=== PATIENT | female | born 1955 | race Caucasian/White ===

== ENCOUNTER → 2024-10-11 | Outpatient (CLI) | payer MEDICARE, SELFPAY ==
[2024-10-11 12:52] LABS: Collection Type, Urine Clean Catch
[2024-10-11 13:15] LABS: Basophils % (Auto) 1 % (0-2.5); Eosinophils # (Auto) 0.1 Thou/mm3 (0.0-0.5); Eosinophils % (Auto) 3 % (0-10); Hematocrit 38.3 % (36.0-46.0); Hemoglobin 13.2 g/dL (12.0-16.0); Immature Granulocytes % (Auto) 0 % (0-0); Immature Granulocytes Auto 0.01 Thou/mm3 (0.00-0.00); Lymphocytes % (Auto) 37 % (10-50); Mean Corpuscular HGB Conc 34.5 g/dl (31.0-37.0); Mean Corpuscular Hemoglobin 28.9 pg (25.0-35.0); Mean Corpuscular Volume 84 fL (80-100); Monocytes # (Auto) 0.5 Thou/mm3 (0.0-0.8); Monocytes % (Auto) 9 % (0-12); Neutrophils # (Auto) 2.9 Thou/mm3 (1.8-7.7); Neutrophils % (Auto) 51 % (37-80); Nucleated Red Blood Cell % 0 /100 WBC (0); Platelet Count 264 Thou/mm3 (140-440); RDW Standard Deviation 40.1 fL (36.4-46.3); Red Blood Count 4.57 Miln/mm3 (4.00-5.20); White Blood Count 5.6 Thou/mm3 (3.6-11.0)
[2024-10-11 13:17] LABS: Bilirubin,Urine Negative (Negative); Blood,Urine Negative (Negative); Clarity,Urine Clear (Clear/Hazy); Color,Urine Lt-Yellow (Lt Yel-Yel); Culture Indicated,Urine Not Indicated; Glucose, Urine Negative (Negative); Hyaline Casts,Urine < 1 /hpf (0-1); Ketones,Urine Negative (Negative); Leukocyte Esterase,Urine Negative (Negative); Nitrite,Urine Negative (Negative); PH,Urine 5.5 (5.0-7.0); Protein,Urine Negative (Neg - Trace); RBC,Urine 4 /hpf (0-3); Specific Gravity,Urine 1.021 (1.001-1.035); Squamous Epithelial Cell,Urine 1 /hpf (0-5); Urobilinogen,Urine Negative mg/dL (0.0-1.0); WBC,Urine 4 /hpf (0-5)
[2024-10-11 13:27] LABS: Glucose Estimated Average 117 mg/dL (80-131); Hemoglobin A1C 5.7 % Hgb (4.8-6.0)
[2024-10-11 13:31] LABS: Parathyroid Hormone Intact 129.7 pg/ml (18.5-88.0)
[2024-10-11 13:34] LABS: Alanine Aminotransferase 20 U/L (10-49); Albumin, Serum 4.6 gm/dL (3.4-4.8); Albumin/Globulin Ratio 1.9 (1.2-2.2); Alkaline Phosphatase 109 U/L (46-116); Anion Gap 7 (7-16); Aspartate Amino Transferase 19 U/L (0-34); BUN/Creatinine Ratio 24 Ratio (12-20); Bilirubin,Total 1.1 mg/dL (0.3-1.2); Blood Urea Nitrogen 26 mg/dL (9-23); Calcium 10.6 mg/dL (8.3-10.6); Calcium (Corrected) 10.6 mg/dL (8.5-10.1); Carbon Dioxide 29.2 mMol/L (20.0-31.0); Cardiac Risk Estimate 3.3 RATIO (3.7-5.6); Chloride 100 mMol/L (98-107); Cholesterol 159 mg/dL (132-200); Creatinine (Component) 1.1 mg/dL (0.6-1.3); Globulin 2.4 gm/dL (2.3-3.5); Glucose 146 mg/dL (74-106); HDL Cholesterol 48 mg/dL (40-60); LDL Cholesterol,Calculated 83 mg/dL (0-130); Osmolality,Calculated 279 (275-295); Potassium 3.9 mMol/L (3.4-5.1); Sodium 136 mMol/L (136-145); Thyroid Stimulating Hormone 1.06 uIU/mL (0.55-4.78); Triglycerides 139 mg/dL (30-150); eGFR 55 See Note
[2024-10-11 13:35] LABS: Vitamin B12 428 pg/mL (211-911)
== END | disposition home or self-care (01) ==
LOC: COPL 11:59
PROVIDERS: PCP Physician Assistant; Referring Provider Physician Assistant; Visit Provider Physician Assistant
DX: I10 Essential (primary) hypertension (principal); E03.9 Hypothyroidism, unspecified; E78.5 Hyperlipidemia, unspecified; R73.01 Impaired fasting glucose; E21.3 Hyperparathyroidism, unspecified
CPT/HCPCS: 36415; 80053; 80061; 81001; 82306; 82607; 83036; 83970; 84443; 85025

== ENCOUNTER → 2024-10-13 | Outpatient (CLI) | payer MEDICARE, SELFPAY ==
[2024-10-19 06:42] LABS: Fecal Globin Result DETECTED (NOT DETECTED)
== END | disposition home or self-care (01) ==
LOC: SLDO 15:19
PROVIDERS: PCP Physician Assistant; Referring Provider Physician Assistant; Visit Provider Physician Assistant
DX: I10 Essential (primary) hypertension (principal); E03.9 Hypothyroidism, unspecified; E78.5 Hyperlipidemia, unspecified; R73.01 Impaired fasting glucose
CPT/HCPCS: 82274; G0328

== ENCOUNTER → 2025-01-11 | Outpatient (CLI) | payer MEDICARE, SELFPAY ==
[2025-01-11 12:09] LABS: Collection Type, Urine Clean Catch
[2025-01-11 12:29] LABS: Bilirubin,Urine Negative (Negative); Blood,Urine Negative (Negative); Clarity,Urine Clear (Clear/Hazy); Color,Urine Lt-Yellow (Lt Yel-Yel); Culture Indicated,Urine Not Indicated; Glucose, Urine Negative (Negative); Hyaline Casts,Urine < 1 /hpf (0-1); Ketones,Urine Negative (Negative); Leukocyte Esterase,Urine Negative (Negative); Nitrite,Urine Negative (Negative); Protein,Urine Negative (Neg - Trace); RBC,Urine 1 /hpf (0-3); Squamous Epithelial Cell,Urine 1 /hpf (0-5); WBC,Urine 1 /hpf (0-5)
[2025-01-11 12:32] LABS: Glucose Estimated Average 120 mg/dL (80-131); Hemoglobin A1C 5.8 % Hgb (4.8-6.0)
[2025-01-11 12:36] LABS: Alanine Aminotransferase 20 U/L (10-49); Albumin, Serum 4.3 gm/dL (3.4-4.8); Albumin/Globulin Ratio 1.8 (1.2-2.2); Alkaline Phosphatase 107 U/L (46-116); Anion Gap 7 (7-16); Aspartate Amino Transferase 20 U/L (0-34); BUN/Creatinine Ratio 20 Ratio (12-20); Bilirubin,Total 0.8 mg/dL (0.3-1.2); Blood Urea Nitrogen 18 mg/dL (9-23); Calcium 10.4 mg/dL (8.3-10.6); Calcium (Corrected) 10.4 mg/dL (8.5-10.1); Carbon Dioxide 30.9 mMol/L (20.0-31.0); Chloride 103 mMol/L (98-107); Cholesterol 168 mg/dL (132-200); Creatinine (Component) 0.9 mg/dL (0.6-1.3); Globulin 2.4 gm/dL (2.3-3.5); Glucose 128 mg/dL (74-106); HDL Cholesterol 56 mg/dL (40-60); LDL Cholesterol,Calculated 83 mg/dL (0-130); Osmolality,Calculated 285 (275-295); Sodium 141 mMol/L (136-145); Total Protein 6.7 gm/dL (5.7-8.2); Triglycerides 145 mg/dL (30-150); eGFR > 60 See Note
== END | disposition home or self-care (01) ==
LOC: COPL 11:20
PROVIDERS: PCP Physician Assistant; Referring Provider Physician Assistant; Visit Provider Physician Assistant
DX: I12.9 Hypertensive chronic kidney disease with stage 1 through stage 4 chronic kidney disease, or unspecified chronic kidney disease (principal); N18.30 Chronic kidney disease, stage 3 unspecified; E78.5 Hyperlipidemia, unspecified; E03.9 Hypothyroidism, unspecified; R73.01 Impaired fasting glucose; R31.9 Hematuria, unspecified
CPT/HCPCS: 36415; 80053; 80061; 81001; 83036; 84443

== ENCOUNTER 2025-05-18 16:09 | Emergency (ER) | payer MEDICARE, SELFPAY ==
[2025-05-18 16:11] VITALS: BMI 33.7
[2025-05-18 17:10] VITALS: BP 118/76; PULSE 58; RESP 18; TEMP 36.7; O2SAT 96; BMI 33.7
--- NOTE | 2025-05-18 17:16 | XR_ITS ---
EXAMINATION: Ankle, right 3 views . Technique: Ankle AP, oblique, lateral 3 views Date and time of exam: May 18, 2025 1751 hours INDICATIONS: Patient fell 2 days ago with injury of the ankle, ankle pain. Status post ankle surgery April 18, 2025 FINDINGS: Status post operative reduction internal fixation fractures distal fibular shaft and distal tibia including medial malleolus Fracture lines are still partially evident fibular shaft and medial malleolus No acute fracture No ankle dislocation IMPRESSION: No acute fracture, no ankle dislocation
--- NOTE | 2025-05-18 17:16 | XR_ITS ---
Examination: Foot, right, 3 views Technique: AP, oblique, lateral views foot, 3 views Date and time of exam: May 18, 2025 1715 hours INDICATIONS: Twisting injury to the foot 2 days ago, foot pain. FINDINGS: No acute foot fracture, please see the ankle report No foreign body IMPRESSION: No acute foot fracture
--- NOTE | 2025-05-18 17:17 | PD.EDRME ---
Rapid Medical Screening Exam RME Arrival date/time: 05/18/25 16:09 69-year-old female presents to the emergency department stating that on April 18 she had surgery for a trimalleolar fracture. Patient reports that she has been wearing her boot but stepped wrong yesterday and wants to make sure that all the hardware is in place Chief Complaint: Recheck/Abnormal Lab/Rx Vital signs: Vital Signs Temperature 98.0 F 05/18/25 17:10 Pulse Rate 58 L 05/18/25 17:10 Respiratory Rate 18 05/18/25 17:10 Blood Pressure 118/76 05/18/25 17:10 Pulse Oximetry (%) 96 05/18/25 17:10 Oxygen Delivery Method Room Air 05/18/25 17:10
--- NOTE | 2025-05-18 17:51 | PD.EDRECHK ---
ED Recheck Abnl Lab Rx-RME/HPI General Chief Complaint: Recheck/Abnormal Lab/Rx Stated Complaint: R FOOT INJURY S/P SURGERY 04/18/25 Time Seen by Provider: 05/18/25 17:50 Arrival date/time: 05/18/25 16:09 69-year-old female presents to the emergency department stating that on April 18 she had surgery for a trimalleolar fracture. Patient reports that she has been wearing her boot but stepped wrong yesterday and wants to make sure that all the hardware is in place Limitations: no limitations RME / HPI RME / HPI narrative: 05/18/25 16:09 69-year-old female presents to the emergency department stating that on April 18 she had surgery for a trimalleolar fracture. Patient reports that she has been wearing her boot but stepped wrong yesterday and wants to make sure that all the hardware is in place Related Data Home Medications ?Medication ?Instructions ?Recorded ?Confirmed atorvastatin 10 mg tablet 1 tab PO QDAY 12/30/19 12/30/19 gabapentin 400 mg capsule 1 cap PO TID 12/30/19 12/30/19 levothyroxine 75 mcg tablet 1 tab PO QDAY 12/30/19 12/30/19 omeprazole 20 mg capsule,delayed 1 cap PO QDAY 12/30/19 12/30/19 release paroxetine HCl 10 mg tablet 1 tab PO QDAY 12/30/19 12/30/19 spironolactone 25 mg tablet 1 tab PO QDAY 12/30/19 12/30/19 Previous Rx's ?Medication ?Instructions ?Recorded lisinopril 10 mg tablet 10 mg PO QDAY #30 tabs 12/30/19 Allergies Allergy/AdvReac Type Severity Reaction Status Date / Time No Known Allergies Allergy Verified 12/30/19 13:24 Review of Systems Review of Systems Systems Reviewed: All systems reviewed, normal except as documented Constitutional Constitutional: Reports system reviewed and no additional complaints, except as documented, Denies fever(s) and Denies headache(s) Eyes Eyes: Reports system reviewed and no additional complaints, except as documented and Denies blurry vision ENT Ears, Nose, Mouth, and Throat: Reports system reviewed and no additional complaints, except as documented, Denies headache(s), Denies nasal congestion and Denies nasal discharge Cardiovascular Cardiovascular: Reports system reviewed and no additional complaints, except as documented, Denies chest pain and Denies dyspnea Respiratory Respiratory: Reports system reviewed and no additional complaints, except as documented, Denies chest congestion, Denies cough and Denies dyspnea Gastrointestinal Gastrointestinal: Reports system reviewed and no additional complaints, except as documented and Denies abdominal pain Musculoskeletal Musculoskeletal: Reports system reviewed and no additional complaints, except as documented, Reports abnormal gait, Reports arthralgias (Right ankle) and Denies deformity Integumentary/Breasts Skin/Breast: Reports system reviewed and no additional complaints, except as documented and Denies rash Neurologic Neurologic: Reports system reviewed and no additional complaints, except as documented, Reports as per HPI, Reports abnormal gait and Denies headache(s) Past Medical History Past Medical History NEUROLOGIC: Negative Neurological Disorders CARDIAC: Negative Cardiac Disorders ED Exam General Limitations: Present no limitations General appearance: Present alert and in no apparent distress Head Head exam: Present atraumatic Eye Eye exam: Present normal appearance, PERRL and EOMI ENT ENT exam: Present normal exam, normal oropharynx and mucous membranes moist Neck Neck exam: Present normal inspection, full ROM and trachea midline Chest Chest inspection: Present normal inspection and symmetric chest wall rise Respiratory Respiratory exam: Present normal lung sounds bilaterally Cardiovascular Cardiovascular exam: Present regular rate, normal rhythm and normal heart sounds Abdominal Exam Abdominal exam: Present soft and normal bowel sounds Extremities Exam Extremities exam: Present tenderness, normal capillary refill and joint swelling (Mild no deformity right ankle) Back Exam Back exam: Present normal inspection and full ROM Neurological Exam Neurological exam: Present alert, oriented X3 and CN II-XII intact Psychiatric Psychiatric exam: Present normal affect and normal mood Skin Skin exam: Present warm, dry, intact and normal color Course Quality Measures none Orders Category Date Time Status XR ankle comp RT min 3V Stat Exams 05/18/25 17:16 Completed XR foot comp RT min 3V Stat Exams 05/18/25 17:16 Completed Vital Signs Vital signs: Vital Signs Temperature 98.0 F 05/18/25 17:10 Pulse Rate 58 L 05/18/25 17:10 Respiratory Rate 18 05/18/25 17:10 Blood Pressure 118/76 05/18/25 17:10 Pulse Oximetry (%) 96 05/18/25 17:10 Oxygen Delivery Method Room Air 05/18/25 17:10 O2 saturation 96 % r.a wnl Recheck / Abnormal Lab / Rx MDM Narrative MDM Narrative:: 69-year-old female presents to the emergency department stating that on April 18 she had surgery for a trimalleolar fracture. Patient reports that she has been wearing her boot but stepped wrong yesterday and wants to make sure that all the hardware is in place On exam patient well-appearing patient does not appear toxic in no acute distress patient has no significant pain patient smiling Imaging of the right ankle and right foot obtained no acute fracture dislocation noted. Fracture appears to be healing hardware appears to be in place Patient given a copy of her disc and instructed follow-up with orthopedist For emergent concerns patient is instructed return immediately Patient data External records reviewed:: None Clinical information provided by:: patient Social determinants that could affect healthcare access:: none Patient has the following chronic illnesses:: She history How is presenting disease/condition affected by chronic disease/condition?: caused by Evaluation data The following diagnostics were reviewed and interpreted by me:: radiology exam(s) Lab and/or radiology exams considered but not ordered:: Radiology obtain Interpretation Summary: Reviewed by me Medications / Prescriptions Medications or Prescriptions considered but not ordered:: Given no meds Medication administrations:: No meds Consultations Consultation(s) initiated? (list below): No Diagnosis Recheck Differential Diagnosis: other Most likely diagnosis given after review of the tests above:: Ankle sprain Admission Indicated Admission indicated?: not indicated Admission Request Was there a request for admission?: No Disposition Plan Disposition Plan: Discharge Discharge Attestation Discharge Attestation: The patient and all family members were given an opportunity to ask questions and understood the discharge instructions. Discharge instructions specifically effects, indications for sooner follow up or return to the emergency department, and the expected course of current diagnosis. Patient condition: Stable Discharge Plan Plan Patient Disposition: HOME (Self Care) Discharge Disposition comment: Stable Prescriptions/Referrals Prescriptions/Med Rec: No Action paroxetine HCl 10 mg tablet 1 tab PO QDAY Patient Comments: TK 1 T PO QD atorvastatin 10 mg tablet 1 tab PO QDAY Patient Comments: TK 1 T PO QD gabapentin 400 mg capsule 1 cap PO TID Patient Comments: TK 1 C PO TID spironolactone 25 mg tablet 1 tab PO QDAY Patient Comments: TK 1 T PO QD PRN levothyroxine 75 mcg tablet 1 tab PO QDAY Patient Comments: TK 1 T PO QD omeprazole 20 mg capsule,delayed release(/EC) 1 cap PO QDAY Patient Comments: TK 1 C PO QD PRN lisinopril 10 mg tablet 10 mg PO QDAY Qty: 30 0RF Problem List Clinical Impression: Ankle pain, right Patient/Caregiver Discharge Instructions Education Materials: ED RICE Additional Instructions: Please follow up with your specialist as discussed for worsening symptoms return immediately Print Language: Romansh Stand Alone Forms: Mya Award Info., Patient Portal Info Letter PA/SCHOOL PSYCHOLOGICAL EXAMINER Supervising Physician PA/SCHOOL PSYCHOLOGICAL EXAMINER Supervising Physician: Dr goins
== END 2025-05-18 18:25 | disposition home or self-care (01) ==
LOC: SERX 18:30
PROVIDERS: Emergency Provider Emergency Medicine
DX: M25.571 Pain in right ankle and joints of right foot (principal); M79.671 Pain in right foot; Z98.890 Other specified postprocedural states
CPT/HCPCS: 73610; 73630; 99283

== ENCOUNTER → 2025-05-30 | Outpatient (CLI) | payer MEDICARE, SELFPAY ==
--- NOTE | 2025-05-30 15:59 | XR_ITS ---
EXAMINATION: Ankle, right 3 views . Technique: Ankle AP, oblique, lateral 3 views Date and time of exam: May 30, 2025, 1616 hours Comparison May 18, 2025 MEDICATIONS: History ankle fractures, post 2 ankle surgeries February and March 2025 FINDINGS: Status post operative reduction internal fixation fractures distal fibular shaft and medial malleolus Partial healing of the fracture distal fibular shaft with satisfactory alignment Medial malleolar fracture line is still quite evident Orthopedic hardware satisfactory position IMPRESSION: Recommend continued follow-up to exclude nonunion at the medial malleolar fracture site
== END | disposition home or self-care (01) ==
PROVIDERS: PCP Physician Assistant; Referring Provider Physician Assistant Medical; Visit Provider Physician Assistant Medical
DX: S82.851A Displaced trimalleolar fracture of right lower leg, initial encounter for closed fracture (principal); X58.XXXA Exposure to other specified factors, initial encounter
CPT/HCPCS: 73610

== ENCOUNTER → 2025-07-20 | Outpatient (CLI) | payer MEDICARE, SELFPAY ==
[2025-07-20 15:05] LABS: Glucose Estimated Average 126 mg/dL (80-131); Hemoglobin A1C 6.0 % Hgb (4.8-6.0)
[2025-07-20 15:30] LABS: Alanine Aminotransferase 36 U/L (10-49); Albumin, Serum 4.6 gm/dL (3.4-4.8); Albumin/Globulin Ratio 1.6 (1.2-2.2); Alkaline Phosphatase 133 U/L (46-116); Anion Gap 13 (7-16); Aspartate Amino Transferase 28 U/L (0-34); BUN/Creatinine Ratio 14 Ratio (12-20); Bilirubin,Total 1.0 mg/dL (0.3-1.2); Blood Urea Nitrogen 15 mg/dL (9-23); Calcium 10.7 mg/dL (8.3-10.6); Calcium (Corrected) 10.7 mg/dL (8.5-10.1); Carbon Dioxide 27.5 mMol/L (20.0-31.0); Chloride 100 mMol/L (98-107); Creatinine (Component) 1.1 mg/dL (0.6-1.3); Globulin 2.8 gm/dL (2.3-3.5); Glucose 152 mg/dL (74-106); Osmolality,Calculated 283 (275-295); Potassium 3.4 mMol/L (3.4-5.1); Sodium 140 mMol/L (136-145); Thyroid Stimulating Hormone 4.48 uIU/mL (0.55-4.78); Total Protein 7.4 gm/dL (5.7-8.2); eGFR 54 See Note
[2025-07-20 15:44] LABS: Cardiac Risk Estimate 3.3 RATIO (3.7-5.6); Cholesterol 164 mg/dL (132-200); HDL Cholesterol 50 mg/dL (40-60); LDL Cholesterol,Calculated 75 mg/dL (0-130); Triglycerides 197 mg/dL (30-150)
== END | disposition home or self-care (01) ==
PROVIDERS: PCP Physician Assistant; Referring Provider Physician Assistant; Visit Provider Physician Assistant
DX: E03.9 Hypothyroidism, unspecified (principal); E78.5 Hyperlipidemia, unspecified; I10 Essential (primary) hypertension; R73.01 Impaired fasting glucose; R19.5 Other fecal abnormalities
CPT/HCPCS: 36415; 80053; 80061; 83036; 84443

== ENCOUNTER → 2025-07-23 | Outpatient (CLI) | payer MEDICARE, SELFPAY ==
[2025-07-26 06:35] LABS: Fecal Globin Result NOT DETECTED (NOT DETECTED)
== END | disposition home or self-care (01) ==
LOC: SLDO 14:15
PROVIDERS: Referring Provider Physician Assistant; Visit Provider Physician Assistant
DX: R19.5 Other fecal abnormalities (principal); E03.9 Hypothyroidism, unspecified; I10 Essential (primary) hypertension; E78.5 Hyperlipidemia, unspecified; R73.01 Impaired fasting glucose
CPT/HCPCS: 82274; G0328

== ENCOUNTER → 2025-08-03 | Outpatient (CLI) | payer MEDICARE, SELFPAY ==
--- NOTE | 2025-08-03 | XR_ITS ---
EXAMINATION: Ankle, right 3 views . Technique: Ankle AP, oblique, lateral 3 views Date and time of exam: August 03, 2025 1237 hours, comparison May 30, 2025 INDICATIONS: History ankle fracture is postop reduction internal fixation FebruaryMarch 2025 FINDINGS: Healed fractures distal fibular shaft with satisfactory alignment Significant healing fracture medial malleolus with satisfactory alignment Orthopedic hardware satisfactory position IMPRESSION: Significant healing bimalleolar fractures with satisfactory alignment
== END | disposition home or self-care (01) ==
PROVIDERS: PCP Family Medicine; Referring Provider Physician Assistant Medical; Visit Provider Physician Assistant Medical
DX: S82.851D Displaced trimalleolar fracture of right lower leg, subsequent encounter for closed fracture with routine healing (principal); X58.XXXD Exposure to other specified factors, subsequent encounter
CPT/HCPCS: 73610

== ENCOUNTER 2025-08-28 12:08 | Emergency (ER) | payer MEDICARE, SELFPAY ==
--- NOTE | 2025-08-28 12:41 | XR_ITS ---
EXAMINATION: Ankle, right 3 views . Technique: Ankle AP, oblique, lateral 3 views Date and time of exam: August 28, 2025, 1246 hours INDICATIONS: Injury to days ago to the ankle, ankle pain. FINDINGS: Healed fracture distal fibular shaft Operative reduction internal fixation medial malleolar fracture but there appears to be nonunion at the fracture site, suggest continued follow-up No acute fracture IMPRESSION: No acute fracture Findings suspicious for nonunion at the medial malleolar fracture site
--- NOTE | 2025-08-28 12:43 | PD.EDANKLE ---
Lower Extremity Injury RME/HPI General Chief Complaint: Ankle/Foot Injury Stated Complaint: R) YESENIA POE, THINKS SCREW HAS COME LOOSE Time Seen by Provider: 08/28/25 12:36 Source: patient Arrival date/time: 08/28/25 12:08 70-year-old female with a history of hyperlipidemia, presents to the emergency room with a chief complaint of tenderness and pain to her right ankle. Patient has a history of a right sided trimalleolar fracture. Mode of arrival: ambulatory Limitations: no limitations Related Data Home Medications ?Medication ?Instructions ?Recorded ?Confirmed atorvastatin 10 mg tablet 1 tab PO QDAY 12/30/19 12/30/19 gabapentin 400 mg capsule 1 cap PO TID 12/30/19 12/30/19 levothyroxine 75 mcg tablet 1 tab PO QDAY 12/30/19 12/30/19 omeprazole 20 mg capsule,delayed 1 cap PO QDAY 12/30/19 12/30/19 release paroxetine HCl 10 mg tablet 1 tab PO QDAY 12/30/19 12/30/19 spironolactone 25 mg tablet 1 tab PO QDAY 12/30/19 12/30/19 Previous Rx's ?Medication ?Instructions ?Recorded lisinopril 10 mg tablet 10 mg PO QDAY #30 tabs 12/30/19 Allergies Allergy/AdvReac Type Severity Reaction Status Date / Time No Known Allergies Allergy Verified 08/28/25 12:13 Review of Systems Review of Systems Systems Reviewed: All systems reviewed, normal except as documented Constitutional Constitutional: Reports system reviewed and no additional complaints, except as documented, Denies fatigue, Denies fever(s), Denies headache(s) and Denies weakness Eyes Eyes: Reports system reviewed and no additional complaints, except as documented, Denies blurry vision and Denies change in vision ENT Ears, Nose, Mouth, and Throat: Reports system reviewed and no additional complaints, except as documented, Denies otalgia, Denies headache(s), Denies nasal congestion, Denies throat swelling and Denies vertigo Cardiovascular Cardiovascular: Reports system reviewed and no additional complaints, except as documented, Denies chest pain, Denies dyspnea and Denies dyspnea on exertion Respiratory Respiratory: Reports system reviewed and no additional complaints, except as documented, Denies chest congestion, Denies cough, Denies dyspnea, Denies dyspnea on exertion and Denies wheezing Gastrointestinal Gastrointestinal: Reports system reviewed and no additional complaints, except as documented, Denies abdominal pain, Denies cramping, Denies nausea and Denies vomiting Genitourinary Genitourinary: Reports system reviewed and no additional complaints, except as documented Musculoskeletal Musculoskeletal: Reports system reviewed and no additional complaints, except as documented, Reports arthralgias, Denies back pain, Reports joint swelling and Reports limited range of motion Integumentary/Breasts Skin/Breast: Reports system reviewed and no additional complaints, except as documented and Denies wounds Neurologic Neurologic: Reports system reviewed and no additional complaints, except as documented, Denies confusion, Denies headache(s), Denies lack of coordination, Denies vertigo and Denies weakness Psychiatric Psychiatric: Reports system reviewed and no additional complaints, except as documented, Denies anxiety, Denies confusion, Denies depression, Denies paranoia, Denies suicidal ideation and Denies tactile hallucinations Endocrine Endocrine: Reports system reviewed and no additional complaints, except as documented and Denies fatigue Hematologic/Lymphatic Hematologic/Lymphatic: Reports system reviewed and no additional complaints, except as documented and Denies lymphadenopathy Allergic/Immunologic Allergic/Immunologic: Reports system reviewed and no additional complaints, except as documented, Denies throat swelling, Denies urticaria and Denies wheezing ED Exam General Limitations: Present no limitations General appearance: Present alert and in no apparent distress Head Head exam: Present atraumatic Eye Eye exam: Present normal appearance, PERRL and EOMI ENT ENT exam: Present normal exam, normal oropharynx and mucous membranes moist Neck Neck exam: Present normal inspection, full ROM and trachea midline Chest Chest inspection: Present normal inspection and symmetric chest wall rise Respiratory Respiratory exam: Present normal lung sounds bilaterally Cardiovascular Cardiovascular exam: Present regular rate, normal rhythm and normal heart sounds Abdominal Exam Abdominal exam: Present soft and normal bowel sounds Extremities Exam Extremities exam: Present normal inspection and full ROM Expanded Lower Extremity Exam Hip/Pelvis exam: Present normal inspection Upper leg exam: Present normal inspection Knee exam: Present normal inspection Lower leg exam: Present normal inspection Ankle exam: Present tenderness and swelling; Absent full ROM Foot/toe exam: Present normal inspection, tenderness and swelling Gait: observed and limited by pain Back Exam Back exam: Present normal inspection and full ROM Neurological Exam Neurological exam: Present alert, oriented X3 and CN II-XII intact Psychiatric Psychiatric exam: Present normal affect and normal mood Skin Skin exam: Present warm, dry, intact and normal color Course Quality Measures none Orders Category Date Time Status XR ankle comp RT min 3V Stat Exams 08/28/25 12:41 Completed Vital Signs Vital signs: Vital Signs Temperature 98.3 F 08/28/25 12:56 Pulse Rate 97 08/28/25 12:56 Respiratory Rate 18 08/28/25 12:56 Blood Pressure 112/80 08/28/25 12:56 Pulse Oximetry (%) 96 08/28/25 12:56 Oxygen Delivery Method Room Air 08/28/25 12:56 Extremity Injury, Lower MDM Narrative MDM Narrative:: 70-year-old female with a history of hyperlipidemia, presents to the emergency room with a chief complaint of tenderness and pain to her right ankle. Patient has a history of a right sided trimalleolar fracture. Patient is hemodynamically stable and in no apparent distress Physical examination shows tenderness, mild swelling, and limited range of motion to the right ankle. The patient has active sensation and active capillary refill with good pedal pulses. X-ray of the right ankle was completed and shows findings suspicious for nonunion at the medial malleolus fracture site. The patient was put in a Matthew wrap and given crutches and educated to follow-up with her epic [facility] specialist for further management of this nonunion. I have greeted and performed a focused initial assessment of this patient. A comprehensive ED assessment and evaluation of the patient, analysis of all test results, and completion of the medical decision making process will be conducted by additional ED providers. Patient data External records reviewed:: [facility] previous records Clinical information provided by:: patient Social determinants that could affect healthcare access:: none Patient has the following chronic illnesses:: No chronic illness How is presenting disease/condition affected by chronic disease/condition?: no chronic disease Evaluation data The following diagnostics were reviewed and interpreted by me:: lab results and radiology exam(s) Lab and/or radiology exams considered but not ordered:: Labs and radiology exams considered and ordered Interpretation Summary: X-ray x-ray ankle-FINDINGS: Healed fracture distal fibular shaft Operative reduction internal fixation medial malleolar fracture but there appears to be nonunion at the fracture site, suggest continued follow-up No acute fracture IMPRESSION: No acute fracture Findings suspicious for nonunion at the medial malleolar fracture site Medications / Prescriptions Medications or Prescriptions considered but not ordered:: No medication given Medication administrations:: No medication given Consultations Consultation(s) initiated? (list below): No Diagnosis Extremity Injury, Lower Differential Diagnosis: ankle sprain and strain, ankle fracture and other Most likely diagnosis given after review of the tests above:: Close ankle fracture with nonunion Admission Indicated Admission indicated?: not indicated Admission Request Was there a request for admission?: No Disposition Plan Disposition Plan: Discharge Discharge Attestation Discharge Attestation: The patient and all family members were given an opportunity to ask questions and understood the discharge instructions. Discharge instructions specifically effects, indications for sooner follow up or return to the emergency department, and the expected course of current diagnosis. Patient condition: Stable Discharge Plan Plan Patient Disposition: HOME (Self Care) Discharge Disposition comment: Stable Prescriptions/Referrals Prescriptions/Med Rec: No Action paroxetine HCl 10 mg tablet 1 tab PO QDAY Patient Comments: TK 1 T PO QD atorvastatin 10 mg tablet 1 tab PO QDAY Patient Comments: TK 1 T PO QD gabapentin 400 mg capsule 1 cap PO TID Patient Comments: TK 1 C PO TID spironolactone 25 mg tablet 1 tab PO QDAY Patient Comments: TK 1 T PO QD PRN levothyroxine 75 mcg tablet 1 tab PO QDAY Patient Comments: TK 1 T PO QD omeprazole 20 mg capsule,delayed release(DR/EC) 1 cap PO QDAY Patient Comments: TK 1 C PO QD PRN lisinopril 10 mg tablet 10 mg PO QDAY Qty: 30 0RF Referrals: Nuria Morales PA-C [Primary Care Provider] - In 1 week Problem List 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 I sent over a disc and a reading please follow-up with your epic [facility] specialist for further management For any evidence of worsening signs or symptoms return to the emergency room immediately Print Language: Occitan Stand Alone Forms: Mya Award Info., Patient Portal Info Letter PA/SABI Supervising Physician MUSA/SABI Supervising Physician: Dr. Palma
[2025-08-28 12:56] VITALS: BP 112/80; PULSE 97; RESP 18; TEMP 36.8; O2SAT 96; BMI 32.5
== END 2025-08-28 16:22 | disposition home or self-care (01) ==
PROVIDERS: Emergency Provider Family Medicine; PCP Physician Assistant
DX: S82.51XA Displaced fracture of medial malleolus of right tibia, initial encounter for closed fracture (principal); X58.XXXA Exposure to other specified factors, initial encounter
CPT/HCPCS: 73610; 99283

== ENCOUNTER → 2025-08-31 | Outpatient (CLI) | payer MEDICARE, SELFPAY ==
--- NOTE | 2025-08-31 08:45 | XR_ITS ---
Examination: Retroperitoneal ultrasound, complete Technique: Multiple high resolution grayscale images of the retroperitoneum obtained, including kidneys and bladder. Exam date and time:August 31, 2025, 0838 hours INDICATIONS: Diagnosis chronic kidney disease stage III FINDINGS: Right kidney 9.8 cm cortex 1.9 cm 20 mm upper pole cyst Left kidney 9.1 cm cortex 1.7 cm Moderate bilateral renal parenchymal scar formation, no hydronephrosis Contracted urinary bladder IMPRESSION: Small kidneys with bilateral renal cortical thinning Moderate bilateral renal parenchymal scar formation
== END | disposition home or self-care (01) ==
LOC: CDIM 08:20
PROVIDERS: PCP Family Medicine; Referring Provider Physician Assistant; Visit Provider Physician Assistant
DX: N28.89 Other specified disorders of kidney and ureter (principal)
CPT/HCPCS: 76770

== ENCOUNTER → 2025-10-03 | Outpatient (CLI) | payer MEDICARE, SELFPAY ==
--- NOTE | 2025-10-03 15:28 | XR_ITS ---
EXAMINATION: PA chest single view TECHNIQUE: Upright PA chest single view Date and time: October 03, 2025, 1540 hours, comparison November 26, 2025 INDICATIONS: FINDINGS: Mild prominence left ventricle No pneumonia or pulmonary edema. Moderate osteopenia IMPRESSION: No active disease
[2025-10-03 16:23] LABS: Collection Type, Urine Clean Catch; Squamous Epithelial Cell,Urine 0 /hpf (0-5)
[2025-10-03 16:47] LABS: Basophils # (Auto) 0.0 Thou/mm3 (0.0-0.2); Basophils % (Auto) 1 % (0-2.5); Eosinophils # (Auto) 0.2 Thou/mm3 (0.0-0.5); Eosinophils % (Auto) 2 % (0-10); Hematocrit 37.2 % (36.0-46.0); Hemoglobin 12.8 g/dL (12.0-16.0); Immature Granulocytes Auto 0.02 Thou/mm3 (0.00-0.00); Lymphocytes # (Auto) 2.7 Thou/mm3 (1.0-4.8); Lymphocytes % (Auto) 37 % (10-50); Mean Corpuscular HGB Conc 34.4 g/dl (31.0-37.0); Mean Corpuscular Hemoglobin 28.3 pg (25.0-35.0); Mean Corpuscular Volume 82 fL (80-100); Monocytes # (Auto) 0.7 Thou/mm3 (0.0-0.8); Monocytes % (Auto) 9 % (0-12); Neutrophils # (Auto) 3.7 Thou/mm3 (1.8-7.7); Neutrophils % (Auto) 51 % (37-80); Nucleated Red Blood Cell # 0.00 Thou/mm3 (0.00-0.00); Nucleated Red Blood Cell % 0 /100 WBC (0); Platelet Count 277 Thou/mm3 (140-440); RDW Standard Deviation 41.0 fL (36.4-46.3); Red Blood Count 4.52 Miln/mm3 (4.00-5.20); White Blood Count 7.3 Thou/mm3 (3.6-11.0)
[2025-10-03 16:48] LABS: INR 1.0 (0.9-1.3); Partial Thromboplastin Time 25.3 Seconds (22.0-36.0); Prothrombin Time 10.3 Seconds (9.0-12.2)
[2025-10-03 16:54] LABS: Bacteria,Urine Rare; Bilirubin,Urine Negative (Negative); Blood,Urine Negative (Negative); Clarity,Urine Clear (Clear/Hazy); Color,Urine Lt-Yellow (Lt Yel-Yel); Glucose, Urine Negative (Negative); Ketones,Urine Negative (Negative); Leukocyte Esterase,Urine Negative (Negative); Nitrite,Urine Negative (Negative); PH,Urine 5.5 (5.0-7.0); Protein,Urine Negative (Neg - Trace); RBC,Urine 1 /hpf (0-3); Specific Gravity,Urine 1.013 (1.001-1.035); Urobilinogen,Urine Negative mg/dL (0.0-1.0); WBC,Urine 1 /hpf (0-5)
[2025-10-03 17:31] LABS: Alanine Aminotransferase 39 U/L (10-49); Albumin, Serum 4.7 gm/dL (3.4-4.8); Albumin/Globulin Ratio 2.4 (1.2-2.2); Alkaline Phosphatase 115 U/L (46-116); Anion Gap 11 (7-16); Aspartate Amino Transferase 35 U/L (0-34); BUN/Creatinine Ratio 10 Ratio (12-20); Bilirubin,Total 0.6 mg/dL (0.3-1.2); Blood Urea Nitrogen 9 mg/dL (9-23); Calcium 9.7 mg/dL (8.3-10.6); Calcium (Corrected) 9.7 mg/dL (8.5-10.1); Carbon Dioxide 24.6 mMol/L (20.0-31.0); Chloride 106 mMol/L (98-107); Creatinine (Component) 0.9 mg/dL (0.6-1.3); Globulin 2.0 gm/dL (2.3-3.5); Glucose 97 mg/dL (74-106); Osmolality,Calculated 281 (275-295); Potassium 3.7 mMol/L (3.4-5.1); Sodium 142 mMol/L (136-145); Total Protein 6.7 gm/dL (5.7-8.2); eGFR > 60 See Note
== END | disposition home or self-care (01) ==
PROVIDERS: PCP Family Medicine; Referring Provider Physician Assistant; Visit Provider Radiology Diagnostic Radiology
DX: I10 Essential (primary) hypertension (principal); E03.9 Hypothyroidism, unspecified; E78.5 Hyperlipidemia, unspecified
CPT/HCPCS: 36415; 71046; 80053; 81001; 85025; 85610; 85730; 87086

== ENCOUNTER → 2025-10-03 | Outpatient (CLI) | payer MEDICARE, SELFPAY ==
--- NOTE | 2025-10-03 10:30 | XR_ITS ---
Examination: CT right ankle, without contrast. 2-D sagittal reconstructions. 2-D coronal reconstructions. 3-D reconstructions. Date and time of exam: October 03, 2025, 1027 hours INDICATIONS: Injury to the ankle April 2025, medial malleolar fracture, status post operative reduction internal fixation fractures distal fibular shaft and medial malleolus May 30, 2025, suspicious for nonunion medial malleolar fracture site Ankle films August 28, 2025 CTDI: vol (mGy): 4.81 DLP: (mGycm): 132 Technique: Multiple 1.25 mm axial sections of the right ankle without intravenous contrast have been obtained. 2-D sagittal and coronal reconstructions have been obtained. 3-D reconstructions have been obtained. Low dose protocols were performed. One or more of the following dose reduction techniques were used; automated exposure control, adjustment of the mA and/or KV according to patient size, use of iterative reconstruction technique. Findings: Severe osteopenia Healed fracture distal fibular shaft with satisfactory alignment Nonunion medial malleolar fracture, orthopedic hardware satisfactory position No ankle dislocation IMPRESSION: Nonunion medial malleolar fracture
== END | disposition home or self-care (01) ==
PROVIDERS: PCP Family Medicine; Referring Provider Physician Assistant; Visit Provider Physician Assistant
DX: S82.51XD Displaced fracture of medial malleolus of right tibia, subsequent encounter for closed fracture with routine healing (principal); X58.XXXD Exposure to other specified factors, subsequent encounter
CPT/HCPCS: 73700

== ENCOUNTER → 2025-11-02 | Outpatient (CLI) | payer MEDICARE, SELFPAY ==
--- NOTE | 2025-11-02 | XR_ITS ---
Examination: Bone densitometry Date and time of exam: 2024, 1241 hours INDICATION: Menopause age 46 levothyroxine 20 years vitamin D 1 year, postmenopausal ankle fracture 8 months ago, personal history osteopenia Technique: Lumbar spine and hip total bone mineralization values of an calculated. Peak reference and age match control results have been displayed. Findings: Lumbar spine total bone mineralization is 0.833 gm/cm2. This is 1.9 standard deviations below peak reference. This is 0.1 standard deviations above age-matched controls. Hip total bone mineralization is 0.943 gm/cm2 This is 0.0 standard deviations at peak reference. This is 1.5 standard deviations above age-matched controls Impression: There is osteopenia based on lumbar spine measurements. There is normal mineralization based on hip measurements Lumbar mineralization is increased 1.7% compared with April 27, 2023 Hip mineralization is decreased 0.2% compared with April 27, 2023
--- NOTE | 2025-11-02 11:45 | XR_ITS ---
Examination: Screening digital mammography, bilateral Computer aided detection 3-D breast Tomosynthesis, bilateral Date and time of exam: November 02, 2025, 11:53 a.m., compared to mammograms dating to July 07, 2018 Indication: Screening Technique: Nonmagnified MLO, CC views of the breasts to been obtained, reconstructed from 3-D Tomosynthesis images. R2 computer aided detection program utilized for evaluation of suspicious masses and/or abnormal calcifications. 3-D Tomosynthesis images obtained. Findings: Scattered areas of fibroglandular density 4 mm nodule upper outer right breast mid to anterior depth Benign calcifications Impression: BI-RADS Category 0: Incomplete: Need additional imaging evaluation Recommend follow-up spot tomographic views of 4 mm nodule upper outer right breast as well as right breast sonography to complete work-up
== END | disposition home or self-care (01) ==
LOC: CDIM 11:43
PROVIDERS: PCP Physician Assistant; Referring Provider Physician Assistant; Visit Provider Physician Assistant
DX: Z12.31 Encounter for screening mammogram for malignant neoplasm of breast (principal); R92.8 Other abnormal and inconclusive findings on diagnostic imaging of breast; N63.11 Unspecified lump in the right breast, upper outer quadrant; M85.89 Other specified disorders of bone density and structure, multiple sites
CPT/HCPCS: 77063; 77067; 77080

== ENCOUNTER → 2025-11-19 | Outpatient (CLI) | payer MEDICARE, SELFPAY ==
--- NOTE | 2025-11-19 14:00 | XR_ITS ---
EXAMINATION: Ankle, right . Technique: Ankle AP, oblique, lateral 3 views Date and time of exam: 11/19/2025 at 2:11 p.m. Comparison study 08/28/2025 Indication: patient was status post third surgery on the ankle 1 month ago, now follow-up FINDINGS: In the fibula there is a compression plate and screws along the lateral cortical margin, bridging an old well-healed oblique fracture of the fibular shaft. All of this appears stable and unchanged from the previous x-ray study. In the distal tibia, there is a long intramedullary screw holding the previous fracture of the medial malleolus in excellent position and alignment. This is a new finding since the previous radiographs on 08/28/2025 Again noted is the compression plate along the posterolateral shaft of the distal tibia unchanged IMPRESSION: 1. There has been 1 new finding since the previous comparison radiographs. 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 3 since the previous radiographs, patient has developed some increased bony sclerosis along both sides of this old fracture suggesting healing response
== END | disposition home or self-care (01) ==
LOC: CDIM 13:51
PROVIDERS: PCP Family Medicine; Referring Provider Physician Assistant; Visit Provider Physician Assistant
DX: S82.54XA Nondisplaced fracture of medial malleolus of right tibia, initial encounter for closed fracture (principal); S82.201A Unspecified fracture of shaft of right tibia, initial encounter for closed fracture; X58.XXXA Exposure to other specified factors, initial encounter; Z98.890 Other specified postprocedural states
CPT/HCPCS: 73610